=== PATIENT | female | born 1995 | race American Indian/Alaskan Native ===

== ENCOUNTER 2018-08-26 19:50 | Emergency (ER) | payer SELFPAY ==
[2018-08-26 21:18] VITALS: BP 144/75
--- NOTE | 2018-08-26 21:20 | Event Note ---
ED Screening Note Date of service: 08/26/18 Time: 21:13 ED Screening Note: This is a 22 y.o. F. that presents with chills and cyst to labia for 1 week. Patient states it was drained in 2018 and continue to return. PMH of HTN, bipolar, and anemia LMP 08/22/2018 This initial assessment/diagnostic orders/clinical plan/treatment(s) is/are subject to change based on patients health status, clinical progression and re- assessment by fellow clinical providers in the ED. Further treatment and workup at subsequent clinical providers discretion. Patient/guardian urged not to elope from the ED as their condition may be serious if not clinically assessed and managed. Initial orders include: ACC for further evaluation
== END 2018-08-26 21:58 | disposition left against medical advice (07) ==
LOC: ED 19:50
DX: R51 Headache (principal); Z53.21 Procedure and treatment not carried out due to patient leaving prior to being seen by health care provider

== ENCOUNTER 2018-08-28 11:08 | Emergency (ER) | payer MEDICAID ==
--- NOTE | 2018-08-28 11:53 | Event Note ---
ED Screening Note ED Screening Note: c/o bartholins cyst x 1 week has had it in 2017, 2018 states she has been using an abx cream on it has seen small amount of drainage LNMP two weeks ago PMHx anemia, herpes allergy: PCN, milk This initial assessment/diagnostic orders/clinical plan/treatment(s) is/are subject to change based on patients health status, clinical progression and re- assessment by fellow clinical providers in the ED. Further treatment and workup at subsequent clinical providers discretion. Patient/guardian urged not to elope from the ED as their condition may be serious if not clinically assessed and managed.
[2018-08-28 12:29] VITALS: BP 130/69
--- NOTE | 2018-08-28 13:50 | Emergency Department Report ---
Abscess Boil HPI - HPI Chief Complaint: Skin/Abscess/Foreign Body Stated Complaint: BOIL Time Seen by Provider: 08/28/18 11:51 History: Yes Pain, Yes Purulent Drainage, Yes Previous History, No Fever, No Numbness, No Foreign Body, No Insect Bite HPI: Patient comes in for right labia swelling and pain. Patient reports that she's had this before in 2017. She reports that she spoke with her [employer] provider and they told her to get it drained and for her to then come in for evaluation. She denies any fever chills or nausea no vomiting. Home Medications: Previous Rx's Medication Instructions Recorded Last Taken Type Clindamycin [Clindamycin CAP] 150 mg PO Q8HR #21 capsule 08/28/18 Unknown Rx Ibuprofen [Motrin 600 MG tab] 600 mg PO Q8H PRN #30 tablet 08/28/18 Unknown Rx Allergies/Adverse Reactions: Allergies Allergy/AdvReac Type Severity Reaction Status Date / Time amoxicillin Allergy Unknown Verified 08/26/18 21:19 Penicillins Allergy Itching Verified 08/26/18 21:19 ED Review of Systems ROS: Stated complaint: BOIL Other details as noted in HPI Comment: All other systems reviewed and negative Skin: other (boil labia) ED Past Medical Hx - Past Medical History Previous Medical History?: Yes Additional medical history: Herpes, anemia - Surgical History Past Surgical History?: Yes - Social History Smoking Status: Never Smoker Substance Use Type: None - Medications Home Medications: Home Medications Medication Instructions Recorded Confirmed Last Taken Type Clindamycin [Clindamycin CAP] 150 mg PO Q8HR #21 capsule 08/28/18 Unknown Rx Ibuprofen [Motrin 600 MG tab] 600 mg PO Q8H PRN #30 tablet 08/28/18 Unknown Rx ED Abscess Boil Physical Exam - Exam General: Vital signs noted. No distress. Alert and acting appropriately. Size: 3 cm Exam: Yes Tenderness, Yes Fluctuance, Yes Normal Neurologic Exam, Yes Normal Circulation, No Surrounding Cellulites/Erythema, No Lymphangitis, No Crepitation, No Heart Murmur I & D Note - I & D Note I & D Note: DATE OF PROCEDURE: 08/28/2018. PREOPERATIVE DIAGNOSES: 1.soft tissue infection. 2. Bartholin's gland abscess. POSTOPERATIVE DIAGNOSES: 1. 2. .........soft tissue infection. Infection appeared to be contained to subcutaneous tissue and there was no evidence of necrotizing soft tissue infection including myonecrosis. OPERATION PERFORMED: Incision and drainage of ..... soft tissue abscess. Provider: Karuna Gaines PA-C. ANESTHESIA: Local. DESCRIPTION OF PROCEDURE: The patient was prepped and draped. Seropurulent, somewhat bloody fluid was noted. The infection appeared contained to a golf ball-sized area in the subcutaneous tissues above the fascia. There was no evidence of myonecrosis, penetration of the fascia or significant extent along the fascia of the infection. We cleaned the area with Betadine and then packed the wound .......... Dry dressings were applied. The patient appeared to tolerate the procedure well. ED Course Vital Signs 08/28/18 11:51 Temperature 98.1 F Pulse Rate 86 Respiratory 18 Rate Blood Pressure 130/69 O2 Sat by Pulse 99 Oximetry Critical care attestation.: If time is entered above; I have spent that time in minutes in the direct care of this critically ill patient, excluding procedure time. ED Disposition Clinical Impression: Bartholin's duct cyst Disposition: - TO HOME OR SELFCARE Is pt being admited?: No Does the pt Need Aspirin: No Condition: Stable Instructions: Bartholin Cyst (ED), Incision and Drainage (ED) Additional Instructions: Complete antibiotics as prescribed. Take pain medication as needed. Follow-up with her [employer] provider. Prescriptions: Clindamycin [Clindamycin CAP] 150 mg PO Q8HR #21 capsule Ibuprofen [Motrin 600 MG tab] 600 mg PO Q8H PRN #30 tablet PRN Reason: Pain , Severe (7-10) Referrals: TICO GAINES MD [Primary Care Provider] - 3-5 Days Forms: Accompanied Note, Work/School Release Form(ED)
[2018-08-28] MEDS ORDERED: XYLOCAINE 1% 20 mL INFILTRATI ONE (14:03)
[2018-08-28] MEDS ORDERED: NORCO 7.5/325 PO ONE (14:05)
[2018-08-28] MEDS ORDERED: IBUPROFEN PO ONE (14:05)
== END 2018-08-28 14:40 | disposition home or self-care (01) ==
LOC: ED 11:08
DX: N75.0 Cyst of Bartholin's gland (principal); Z88.0 Allergy status to penicillin; Z88.1 Allergy status to other antibiotic agents; Z79.1 Long term (current) use of non-steroidal anti-inflammatories (NSAID); Z86.2 Personal history of diseases of the blood and blood-forming organs and certain disorders involving the immune mechanism
CPT/HCPCS: 87116

== ENCOUNTER 2019-10-11 15:47 | Emergency (ER) | payer MEDICAID ==
[2019-10-11 15:56] VITALS: BP 146/60
[2019-10-11 16:39] LABS: Bacteria,Urine 1+ /HPF (Negative); Bilirubin,Urine NEG (Negative); Blood,Urine NEG (Negative); Color,Urine Yellow (Yellow); Hyaline Casts,Urine 1 /LPF; Mucus,Urine FEW /HPF; Protein,Urine <15 mg/dL mg/dL (Negative); Urobilinogen,Urine < 2.0 mg/dL (<2.0)
== END 2019-10-11 17:15 | disposition left against medical advice (07) ==
LOC: ED 15:47
DX: R51 Headache (principal); Z53.21 Procedure and treatment not carried out due to patient leaving prior to being seen by health care provider
CPT/HCPCS: 81001